=== PATIENT | female | born 1970 | race Two or more races ===

== ENCOUNTER 2017-11-01 12:14 | Emergency (ER) | payer OTHER ==
[2017-11-01] MEDS ORDERED: ONDANSETRON 4 MG/2 ML VIAL IVP ONE (13:15)
[2017-11-01] MEDS ORDERED: HYDROmorphONE/DILAUDID 2 MG/ML INJ IVP ONE ×2 (13:15→15:45)
[2017-11-01] MEDS ORDERED: NS 1,000 ML IV ONE (13:15)
--- NOTE | 2017-11-01 13:18 | EDPHY ---
H & P Stated Complaint: PERIUMBILICAL AND SUPRAPUBIC ABDOMINAL PAIN Time Seen by Provider: 11/01/17 13:10 HPI/ROS: CHIEF COMPLAINT: Lower abdominal pain HISTORY OF PRESENT ILLNESS: The patient is a 46-year-old female who comes to the emergency department with her son complaining of lower abdominal pain for the last week. She states that it began hurting about a week ago but got significantly worse on Tuesday. No vomiting but she has had nausea and decreased appetite. No fevers. No history of surgery. She is currently menstruating and does not think that she is . No dysuria. She has slight left flank pain. She denies vaginal discharge other than bleeding during her menses. REVIEW OF SYSTEMS: Constitutional: denies: chills, fever, recent illness, recent injury EENTM: denies: blurred vision, double vision, nose congestion Respiratory: denies: cough, shortness of breath Cardiac: denies: chest pain, irregular heart rate, lightheadedness, palpitations Gastrointestinal/Abdominal: See HPI denies: diarrhea, vomiting, blood streaked stools Genitourinary: denies: dysuria, frequency, hematuria, pain Musculoskeletal: denies: joint pain, muscle pain Skin: denies: lesions, rash, jaundice, bruising Neurological: denies: headache, numbness, paresthesia, tingling, dizziness, weakness Hematologic/Lymphatic: denies: blood clots, easy bleeding, easy bruising Immunologic/allergic: denies: HIV/AIDS, transplant EXAM: GENERAL: Well-appearing, obese and in no acute distress. HEAD: Atraumatic, normocephalic. EYES: Pupils equal round and reactive to light, extraocular movements intact, sclera anicteric, conjunctiva are normal. ENT: TMs normal, nares patent, oropharynx clear without exudates. Moist mucous membranes. NECK: Normal range of motion, supple without lymphadenopathy or JVD. LUNGS: Breath sounds clear to auscultation bilaterally and equal. No wheezes rales or rhonchi. HEART: Regular rate and rhythm without murmurs, rubs or gallops. ABDOMEN: Mild diffuse tenderness, predominantly right lower quadrant. No guarding or rebound BACK: No CVA tenderness, no spinal tenderness, step-offs or deformities EXTREMITIES: Normal range of motion, no pitting or edema. No clubbing or cyanosis. NEUROLOGICAL: Cranial nerves II through XII grossly intact. Normal speech, normal gait. 5/5 strength, normal movement in all extremities, normal sensation PSYCH: Normal mood, normal affect. SKIN: Warm, dry, normal turgor, no visible rashes or lesions. Source: Patient Exam Limitations: No limitations - Personal History LMP (Females 10-55): Now Current Tetanus Diphtheria and Acellular Pertussis (TDAP): Unsure - Medical/Surgical History Hx Asthma: No Hx Chronic Respiratory Disease: No Hx Diabetes: Yes Hx Cardiac Disease: No Hx Renal Disease: No Hx Cirrhosis: No Hx Alcoholism: No Hx HIV/AIDS: No Hx Splenectomy or Spleen Trauma: No Other PMH: DIABETIC, HTN - Family History Significant Family History: No pertinent family hx - Social History Smoking Status: Never smoked Alcohol Use: Sober Drug Use: None Constitutional: Initial Vital Signs Temperature (C) 36.6 C 11/01/17 12:18 Heart Rate 91 11/01/17 12:18 Respiratory Rate 16 11/01/17 12:18 Blood Pressure 156/100 H 11/01/17 12:18 O2 Sat (%) 94 11/01/17 12:18 O2 Delivery Mode Room Air Allergies/Adverse Reactions: No Known Allergies Allergy (Unverified 11/01/17 12:25) Home Medications: Medication Instructions Recorded Blood Pressure Med 11/01/17 Doxycycline Hyclate [Vibramycin] 100 mg PO BID #30 cap 11/01/17 Hydrocodone/APAP 5/325 [[place] 1 - 2 tab PO Q4H PRN #10 tab 11/01/17 5/325 (RX)] Insulin 11/01/17 Metformin HCl 11/01/17 Medical Decision Making - Diagnostics Imaging Results: Imaging Impressions Abdomen CT 11/01/17 13:16 Impression: 1. Acute salpingitis of the right adnexa with up to 7 mm of fallopian tube dilatation. 2. At least 2 uterine fibroids measuring up to 4.7 and 3.2 cm respectively. Recommend correlation with pelvic ultrasound. Findings were communicated by telephone with Dr. LOLI FORTE at 11/01/2017 14:47 Pelvic/Renal Ultrasound 11/01/17 14:39 Impression: 1. Technically limited assessment because of the patient's body habitus and adjacent bowel gas. The ovaries are seen in a very limited fashion on the EV study. The CT scan demonstrates features consistent with a right salpingitis. There is also some soft tissue redundancy/fullness at the level of the cervix, which may warrant further evaluation with a Pap smear, when clinically feasible. The patient reportedly does not have cervical motion tenderness 2. Mild uniform endometrial thickening measuring 11.5 mm. 3. Myometrial heterogeneity, with intramural fibroids better delineated on CT imaging. Findings were discussed with LOLI FORTE MD at 16:07, on 11/01/2017. Imaging: Discussed imaging studies w/ call center trainer Radiologist Procedures: Procedure: Splint placement. A thumb spica splint was applied. After application of the splint I returned and re-examined the patient. The splint was adequately immobilizing the joint and distal to the splint the patient's circulation and sensation was intact. ED Course/Re-evaluation: 3:40 p.m. We performed a pelvic examination. Patient denies having any discharge or concern for STD. Samples were taken and sent to the lab. No cervical motion tenderness or adnexal fullness. Ultrasound pending. 4:15 p.m. We had a long discussion about her test results which indicates salpingitis and what that means for her and her . She will discuss this with her . I will treat her with antibiotics until her cultures return in 3 days. She will follow up with people's the results. 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 She denies fall or trauma. It seems consistent with tendinitis. I recommended anti-inflammatories in a brace and follow-up. She declines x-rays. Differential Diagnosis: Partial list of the Differential diagnosis considered include but were not limited to; appendicitis, urinary tract infection, PID and although unlikely based on the history and physical exam, I also considered , abscess, perforation, diverticulitis. I discussed these differential diagnoses and the plan with the patient as well as the usual and expected course. The patient understands that the diagnosis is provisional and that in medicine we are not always correct and that further workup is often warranted. Usual and customary warnings were given. All of the patient's questions were answered. The patient was instructed to return to the emergency department should the symptoms at all worsen or return, otherwise to followup with the physician as we discussed. - Data Points Laboratory Results: Laboratory Results 11/01/17 13:20 11/01/17 13:20 11/01/17 11/01/17 11/01/17 13:45 13:45 13:20 WBC RBC Hgb Hct MCV MCH MCHC RDW Plt Count MPV Neut % (Auto) Lymph % (Auto) [place] % (Auto) Eos % (Auto) Baso % (Auto) Nucleat RBC Rel Count Absolute Neuts (auto) Absolute Lymphs (auto) Absolute Monos (auto) Absolute Eos (auto) Absolute Basos (auto) Absolute Nucleated RBC Immature Gran % Immature Gran # Sodium Potassium Chloride Carbon Dioxide Anion Gap BUN Creatinine Estimated GFR Glucose Calcium Total Bilirubin Conjugated Bilirubin Unconjugated Bilirubin AST ALT Alkaline Phosphatase Total Protein Albumin Lipase Beta HCG, Qual NEGATIVE Urine Color Urine Appearance Urine pH Ur Specific [place] Urine Protein Urine Ketones Urine Blood Urine Nitrate Urine Bilirubin Urine Urobilinogen Ur Leukocyte Esterase Urine RBC Urine WBC Ur Epithelial Cells Urine Mucus Urine Glucose Trichomonas (Wet Prep) NO TRICHOMONAS C.trachomatis RNA (TMA) Pending N.gonorrhoeae RNA (TMA) Pending 11/01/17 11/01/17 11/01/17 13:20 13:20 12:37 WBC 9.36 10^3/uL 10^3/uL (3.80-9.50) RBC 4.38 10^6/uL 10^6/uL (4.18-5.33) Hgb 12.8 g/dL g/dL (12.6-16.3) Hct 37.8 % L % (38.0-47.0) MCV 86.3 fL fL (81.5-99.8) MCH 29.2 pg pg (27.9-34.1) MCHC 33.9 g/dL g/dL (32.4-36.7) RDW 12.8 % % (11.5-15.2) Plt Count 346 10^3/uL 10^3/uL (150-400) MPV 9.7 fL fL (8.7-11.7) Neut % (Auto) 69.9 % % (39.3-74.2) Lymph % (Auto) 21.7 % % (15.0-45.0) [place] % (Auto) 6.7 % % (4.5-13.0) Eos % (Auto) 1.2 % % (0.6-7.6) Baso % (Auto) 0.2 % L % (0.3-1.7) Nucleat RBC Rel Count 0.0 % % (0.0-0.2) Absolute Neuts (auto) 6.54 10^3/uL H 10^3/uL (1.70-6.50) Absolute Lymphs (auto) 2.03 10^3/uL 10^3/uL (1.00-3.00) Absolute Monos (auto) 0.63 10^3/uL 10^3/uL (0.30-0.80) Absolute Eos (auto) 0.11 10^3/uL 10^3/uL (0.03-0.40) Absolute Basos (auto) 0.02 10^3/uL 10^3/uL (0.02-0.10) Absolute Nucleated RBC 0.00 10^3/uL 10^3/uL (0-0.01) Immature Gran % 0.3 % % (0.0-1.1) Immature Gran # 0.03 10^3/uL 10^3/uL (0.00-0.10) Sodium 140 mEq/L mEq/L (135-145) Potassium 4.0 mEq/L mEq/L (3.3-5.0) Chloride 104 mEq/L mEq/L (97-110) Carbon Dioxide 25 mEq/l mEq/l (22-31) Anion Gap 11 mEq/L mEq/L (8-16) BUN 11 mg/dL mg/dL (7-23) Creatinine 0.6 mg/dL mg/dL (0.6-1.0) Estimated GFR > 60 Glucose 278 mg/dL H mg/dL (70-100) Calcium 9.1 mg/dL mg/dL (8.5-10.4) Total Bilirubin 0.4 mg/dL mg/dL (0.1-1.4) Conjugated Bilirubin 0.2 mg/dL mg/dL (0.0-0.5) Unconjugated Bilirubin 0.2 mg/dL mg/dL (0.0-1.1) AST 13 IU/L L IU/L (14-46) ALT 24 IU/L IU/L (9-52) Alkaline Phosphatase 85 IU/L IU/L (38-126) Total Protein 7.1 g/dL g/dL (6.3-8.2) Albumin 3.7 g/dL g/dL (3.5-5.0) Lipase 105 IU/L IU/L (23-300) Beta HCG, Qual Urine Color YELLOW Urine Appearance HAZY Urine pH 6.0 (5.0-7.5) Ur Specific [place] 1.026 (1.002-1.030) Urine Protein NEGATIVE (NEGATIVE) Urine Ketones NEGATIVE (NEGATIVE) Urine Blood 3+ H (NEGATIVE) Urine Nitrate NEGATIVE (NEGATIVE) Urine Bilirubin NEGATIVE (NEGATIVE) Urine Urobilinogen NEGATIVE EU EU (0.2-1.0) Ur Leukocyte Esterase 2+ H (NEGATIVE) Urine RBC 10-15 /hpf H /hpf (0-3) Urine WBC 5-10 /hpf H /hpf (0-3) Ur Epithelial Cells TRACE /lpf /lpf (NONE-1+) Urine Mucus TRACE /lpf /lpf (NONE-1+) Urine Glucose 3+ H (NEGATIVE) Trichomonas (Wet Prep) C.trachomatis RNA (TMA) N.gonorrhoeae RNA (TMA) Medications Given: Discontinued Medications Doxycycline Hyclate (Doxycycline Hyclate) 100 mg PO EDNOW ONE PRN Reason: Protocol Stop: 11/01/17 16:13 Last Admin: 11/01/17 16:30 Dose: 100 mg Hydromorphone HCl (Dilaudid) 1 mg IVP EDNOW ONE Stop: 11/01/17 13:16 Last Admin: 11/01/17 13:25 Dose: 1 mg Hydromorphone HCl (Dilaudid) 0.5 mg IVP EDNOW ONE Stop: 11/01/17 15:46 Last Admin: 11/01/17 16:01 Dose: 0.5 mg Sodium Chloride (Ns) 1,000 mls @ 0 mls/hr IV EDNOW ONE; Wide Open PRN Reason: Protocol Stop: 11/01/17 13:16 Last Admin: 11/01/17 13:25 Dose: 1,000 mls Ceftriaxone Sodium/Dextrose (Rocephin 1 Gm (Premix)) 50 mls @ 100 mls/hr IV EDNOW ONE PRN Reason: Protocol Stop: 11/01/17 16:14 Last Admin: 11/01/17 16:01 Dose: 50 mls Ondansetron HCl (Zofran) 4 mg IVP EDNOW ONE Stop: 11/01/17 13:16 Last Admin: 11/01/17 13:25 Dose: 4 mg Departure - Departure Disposition: Home, Routine, Self-Care Clinical Impression: Salpingitis Condition: Fair Instructions: Pelvic Inflammatory Disease (ED) Referrals: NONE *PRIMARY CARE P,. [Unknown] - As per Instructions [facility],. [Clinic] - 2-3 days, call for appt. Stand Alone Forms: Work Excuse Prescriptions: Doxycycline Hyclate [Vibramycin] 100 mg PO BID #30 cap Hydrocodone/APAP 5/325 [[place] 5/325 (RX)] 1 - 2 tab PO Q4H PRN #10 tab PRN Reason: Pain, Moderate Print Language: Tuvaluan
[2017-11-01] MEDS ORDERED: HYDROmorphONE/DILAUDID 1 MG/ML INJ ONE ×2 (13:22→15:57)
[2017-11-01 13:26] LABS: PLATELET COUNT 346 10^3/uL (150-400)
[2017-11-01] MEDS ORDERED: IOPAMIDOL (ISOVUE-300) 100 ML BTL ONE (13:59)
[2017-11-01 14:46] VITALS: BP 150/93
[2017-11-01] MEDS ORDERED: DOXYCYCLINE HYCLATE 100 MG CAP/TAB PO ONE (16:12)
[2017-11-02 11:35] LABS: GC AMPLIFICATION GENPROBE NEGATIVE (NEGATIVE)
== END 2017-11-01 16:40 | disposition home or self-care (01) ==
DX: N70.91 Salpingitis, unspecified (principal); E11.9 Type 2 diabetes mellitus without complications; I10 Essential (primary) hypertension; E86.9 Volume depletion, unspecified; Z79.4 Long term (current) use of insulin; Z79.84 Long term (current) use of oral hypoglycemic drugs
CPT/HCPCS: 96365; J0696; J1170; J2405; Q9967